=== PATIENT | male | born 1940 | race Asian ===

== ENCOUNTER 2024-06-05 16:33 | Emergency (ER) | payer MEDICARE, OTHER ==
[~2024-06-05] VITALS: Ht 162.6 cm; Wt 63.6 kg
[2024-06-05 17:07] VITALS: TEMP 97.9
[2024-06-05] MEDS ORDERED: SIMV-46 PO (17:14)
[2024-06-05] MEDS ORDERED: ASPI-1444 PO (17:14)
[2024-06-05] MEDS ORDERED: AMLO5TAB66 PO (17:14)
[2024-06-05] MEDS ORDERED: CHOL200059 PO (17:14)
[2024-06-05] MEDS ORDERED: TAMS0.4C94 PO (17:14)
[2024-06-05] MEDS ORDERED: MULT-1366 PO (17:16)
[2024-06-05] MEDS ORDERED: FERR-89 PO (17:16)
[2024-06-05 19:29] LABS: BASOPHILS % (AUTO) 0.1 % (0.0-2.0); EOSINOPHILS % (AUTO) 0.4 % (1.0-6.0); HEMATOCRIT 35.8 % (41-53); HEMOGLOBIN 11.1 g/dL (13.5-17.5); LYMPHOCYTES # (AUTO) 0.8 K/uL (1.0-4.8); LYMPHOCYTES % (AUTO) 6.7 % (22.0-44.0); MEAN CORPUSCULAR VOLUME 71 fL (80-100); MONOCYTES # (AUTO) 0.9 K/uL (0.1-1.0); MONOCYTES % (AUTO) 7.4 % (2.0-9.0); NEUTROPHILS # (AUTO) 10.3 K/uL (1.8-7.7); NEUTROPHILS % (AUTO) 85.4 % (40.0-70.0); PLATELET COUNT (AUTO) 171 K/uL (150-450); RED BLOOD CELL COUNT(AUTO) 5.04 MIL/uL (4.50-5.90); RED CELL DISTRIBUTION WIDTH 14.8 % (11.5-14.5)
[2024-06-05 19:33] LABS: ANION GAP 8 mmol/L (8-16); CALCIUM, TOTAL 8.4 mg/dL (8.8-10.5); CARBON DIOXIDE 27 mmol/L (22-29); CHLORIDE 108 mmol/L (98-107); CREATININE 1.09 mg/dL (0.60-1.30); GLOMERULAR FILTR. RATE CALC > 60 mL/min (>60); GLUCOSE,RANDOM 136 mg/dL (70-110); POTASSIUM 3.8 mmol/L (3.5-5.1); SODIUM SERUM 143 mmol/L (136-145); UREA NITROGEN, BLOOD 31 mg/dL (7-18)
[2024-06-05 19:39] LABS: LACTIC ACID 0.9 mmol/L (0.4-2.0)
[2024-06-05 19:41] LABS: TROPONIN I-HIGH SENSITIVITY 12 ng/L (<76)
[2024-06-05 20:05] LABS: APPEARANCE,URINE HAZY (CLEAR); BILIRUBIN,URINE NEGATIVE (NEGATIVE); COLOR,URINE YELLOW (YELLOW); GLUCOSE, URINE (UA) NEGATIVE (NEGATIVE); KETONES,URINE TRACE mg/dL (NEGATIVE); LEUKOCYTE ESTERASE ,URINE LARGE (NEGATIVE); NITRATE,URINE NEGATIVE (NEGATIVE); OCCULT BLOOD,URINE NEGATIVE (NEGATIVE); PH,URINE 5.5 (5.0-8.0); PROTEIN,URINE 30-70 mg/dL (NEGATIVE); SPECIFIC GRAVITIY, URINE 1.024 (1.003-1.030)
[2024-06-05 20:13] LABS: RBC MORPHOLOGY COMMENT ABNORMAL RBC MORPH
[2024-06-05 20:24] LABS: BACTERIA,URINE Moderate /HPF (None Seen); RBC,URINE 0-2 /HPF (0-2); SQUAMOUS EPITHELIAL CELL,UR Few /LPF (None Seen); WBC,URINE 26-50 /HPF (0-5)
[2024-06-05] MEDS ORDERED: CEFU250T87 PO (20:54)
[2024-06-05] MEDS: CEFUROXIME AXETIL 250 MG TABLET PO ONE (21:05)
[2024-06-05] MEDS: IBUPROFEN 400 MG TABLET PO ONE (21:05)
[2024-06-05] MEDS: LIDOCAINE 5% TRANSDERMAL PATCH TD ONE (21:06)
[2024-06-06 00:36] VITALS: BP 131/56; PULSE 79; RESP 19; O2SAT 97
== END 2024-06-06 00:36 | disposition home or self-care (01) ==
LOC: EMS 16:41
DX: S22.32XA Fracture of one rib, left side, initial encounter for closed fracture (principal); N39.0 Urinary tract infection, site not specified; R41.82 Altered mental status, unspecified; F03.90 Unspecified dementia, unspecified severity, without behavioral disturbance, psychotic disturbance, mood disturbance, and anxiety; E78.00 Pure hypercholesterolemia, unspecified; I10 Essential (primary) hypertension; N40.0 Benign prostatic hyperplasia without lower urinary tract symptoms; Z79.82 Long term (current) use of aspirin; Z79.899 Other long term (current) drug therapy; W06.XXXA Fall from bed, initial encounter; Y93.01 Activity, walking, marching and hiking; Y92.89 Other specified places as the place of occurrence of the external cause; Y99.8 Other external cause status
CPT/HCPCS: 70450; 71100; 73503; 80048; 81001; 83605; 84484; 85025; 87077; 87086; 87186; 99284

== ENCOUNTER 2024-10-06 16:34 | Inpatient (IN) | payer MEDICARE, OTHER ==
[~2024-10-06] VITALS: Ht 167.6 cm; Wt 53.8 kg
[~2024-10-06 16:34] MED LIST: AMLO5TAB66 PO; ASPI-1444 PO; ATOR40TA71 PO; CHOL200059 PO; FERR-89 PO; METO25 PO; MULT-1366 PO; QUET50TA24 PO; SERT-438 PO; TAMS0.4C94 PO
[2024-10-06] MEDS ORDERED: 0.9% SODIUM CHLORIDE 10 ML SYRINGE IVP PRN (16:45)
[2024-10-06] MEDS ORDERED: NITR0.4T50 SL (16:48)
[2024-10-06] MEDS: SODIUM CHLORIDE 0.9% 1,050 ML IV ONE (16:57)
[2024-10-06 17:09] LABS: COVID AG,FIA SOURCE NASAL SWAB
[2024-10-06 17:09] LABS: BASOPHILS % (AUTO) 0.1 % (0.0-2.0); EOSINOPHILS % (AUTO) 1.2 % (1.0-6.0); HEMATOCRIT 31.6 % (41-53); HEMOGLOBIN 9.9 g/dL (13.5-17.5); LYMPHOCYTES # (AUTO) 0.7 K/uL (1.0-4.8); LYMPHOCYTES % (AUTO) 7.2 % (22.0-44.0); MEAN CORPUSCULAR HEMOGLOBIN 22.3 pg (26.0-34.0); MEAN CORPUSCULAR HGB CONC 31.4 G/dL (31.0-37.0); MEAN CORPUSCULAR VOLUME 71 fL (80-100); MONOCYTES # (AUTO) 0.9 K/uL (0.1-1.0); MONOCYTES % (AUTO) 9.4 % (2.0-9.0); NEUTROPHILS # (AUTO) 8.2 K/uL (1.8-7.7); NEUTROPHILS % (AUTO) 82.1 % (40.0-70.0); PLATELET COUNT (AUTO) 229 K/uL (150-450); RED BLOOD CELL COUNT(AUTO) 4.45 MIL/uL (4.50-5.90); RED CELL DISTRIBUTION WIDTH 16.1 % (11.5-14.5)
[2024-10-06 17:19] LABS: RBC MORPHOLOGY COMMENT ABNORMAL RBC MORPH
[2024-10-06 17:21] LABS: B-TYPE NATRIURETIC PEPTIDE 45 pg/mL (0-100)
[2024-10-06 17:22] LABS: ANION GAP 9 mmol/L (8-16); CALCIUM, TOTAL 8.4 mg/dL (8.8-10.5); CARBON DIOXIDE 25 mmol/L (22-29); CHLORIDE 114 mmol/L (98-107); CREATININE 0.93 mg/dL (0.60-1.30); GLOMERULAR FILTR. RATE CALC > 60 mL/min (>60); GLUCOSE,RANDOM 123 mg/dL (70-110); POTASSIUM 3.7 mmol/L (3.5-5.1); SODIUM SERUM 148 mmol/L (136-145); UREA NITROGEN, BLOOD 31 mg/dL (7-18)
[2024-10-06 17:30] LABS: LACTIC ACID 0.7 mmol/L (0.4-2.0)
[2024-10-06 17:31] LABS: TROPONIN I-HIGH SENSITIVITY 12 ng/L (<76)
[2024-10-06 17:45] LABS: SARS-COV2 (COVID) ANTIGEN,FIA Negative (Negative)
[2024-10-06 17:46] LABS: INFLUENZA TYPE A NEGATIVE FOR TYPE A (NEGATIVE); INFLUENZA TYPE B NEGATIVE FOR TYPE B (NEGATIVE)
[2024-10-06] MEDS: CefTRIAXone 1 GM/DEXTROSE 50 ML IV ONE (18:27)
[2024-10-06] MEDS ORDERED: IPRATROPIUM BROMIDE 0.5 MG/2.5 ML NEB SOLUTION NEB PRN (19:45)
[2024-10-06] MEDS ORDERED: ALBUTEROL SULFATE 2.5 MG/0.5 ML NEB SOLUTION NEB PRN (19:45)
[2024-10-06] MEDS ORDERED: ONDANSETRON HCL 4 MG/2 ML VIAL IVP PRN (19:45)
[2024-10-06] MEDS ORDERED: ACETAMINOPHEN 325 MG TABLET PO PRN (19:45)
[2024-10-06] MEDS: PIPERACILLIN/TAZO 3.375 GM/D5W 50 ML IV ONE (20:29)
[2024-10-06 20:50] LABS: APPEARANCE,URINE CLEAR (CLEAR); BILIRUBIN,URINE NEGATIVE (NEGATIVE); COLOR,URINE YELLOW (YELLOW); GLUCOSE, URINE (UA) NEGATIVE (NEGATIVE); KETONES,URINE NEGATIVE (NEGATIVE); LEUKOCYTE ESTERASE ,URINE NEGATIVE (NEGATIVE); NITRATE,URINE NEGATIVE (NEGATIVE); OCCULT BLOOD,URINE NEGATIVE (NEGATIVE); PH,URINE 5.5 (5.0-8.0); PROTEIN,URINE TRACE mg/dL (NEGATIVE); SPECIFIC GRAVITIY, URINE 1.024 (1.003-1.030); UROBILINOGEN,URINE <=1.0 mg/dL (<=1.0)
[2024-10-06 23:15] VITALS: BP 136/66; PULSE 91; RESP 17; TEMP 98.2; O2SAT 98
[2024-10-06] MEDS: DOCUSATE SODIUM 100 MG CAPSULE PO SCH (23:45)
[2024-10-07] MEDS: HEPARIN SODIUM,PORCINE 5,000 UNITS/ML VIAL SQ SCH (01:12)
[2024-10-07] MEDS: PIPERACILLIN/TAZO 3.375 GM/D5W 50 ML IV SCH (03:08)
[2024-10-07 04:00] VITALS: BP 145/68; PULSE 100; RESP 16; TEMP 98.4; O2SAT 98
[2024-10-07 06:59] LABS: BASOPHILS % (AUTO) 0.3 % (0.0-2.0); EOSINOPHILS % (AUTO) 3.1 % (1.0-6.0); HEMATOCRIT 32.4 % (41-53); HEMOGLOBIN 10.2 g/dL (13.5-17.5); LYMPHOCYTES # (AUTO) 0.9 K/uL (1.0-4.8); LYMPHOCYTES % (AUTO) 8.3 % (22.0-44.0); MEAN CORPUSCULAR HEMOGLOBIN 22.4 pg (26.0-34.0); MEAN CORPUSCULAR HGB CONC 31.3 G/dL (31.0-37.0); MEAN CORPUSCULAR VOLUME 72 fL (80-100); MONOCYTES # (AUTO) 0.8 K/uL (0.1-1.0); MONOCYTES % (AUTO) 7.2 % (2.0-9.0); NEUTROPHILS % (AUTO) 81.1 % (40.0-70.0); PLATELET COUNT (AUTO) 254 K/uL (150-450); RED BLOOD CELL COUNT(AUTO) 4.54 MIL/uL (4.50-5.90); RED CELL DISTRIBUTION WIDTH 16.3 % (11.5-14.5); WHITE BLOOD COUNT (AUTO) 11.1 K/uL (4.5-11.0)
[2024-10-07 07:18] LABS: ANION GAP 7 mmol/L (8-16); CALCIUM, TOTAL 8.5 mg/dL (8.8-10.5); CARBON DIOXIDE 26 mmol/L (22-29); CHLORIDE 113 mmol/L (98-107); CREATININE 1.03 mg/dL (0.60-1.30); GLOMERULAR FILTR. RATE CALC > 60 mL/min (>60); GLUCOSE,RANDOM 132 mg/dL (70-110); POTASSIUM 3.6 mmol/L (3.5-5.1); SODIUM SERUM 146 mmol/L (136-145); UREA NITROGEN, BLOOD 30 mg/dL (7-18)
[2024-10-07 07:44] VITALS: BP 149/67; PULSE 84; RESP 18; TEMP 98.4; O2SAT 98
[2024-10-07 11:11] LABS: RBC MORPHOLOGY COMMENT ABNORMAL RBC MORPH
[2024-10-07] MEDS: MAGNESIUM HYDROXIDE SUSPENSION 30 ML UDCUP PO PRN (11:11)
[2024-10-07 11:40] VITALS: BP 124/67; PULSE 87; RESP 18; O2SAT 97
[2024-10-07 16:08] VITALS: BP 132/71; PULSE 89; RESP 18; TEMP 97.7; O2SAT 98
[2024-10-07 20:00] VITALS: BP 140/65; PULSE 92; RESP 18; TEMP 98; O2SAT 98
[2024-10-08] VITALS (7 sets, daily range): BP systolic 120–149; BP diastolic 53–69; PULSE 79–89; RESP 16–20; TEMP 97.8–98.6; O2SAT 97–99
[2024-10-08] MEDS: DEXTROSE 5%-WATER 1,000 ML IV ONE (14:23)
[2024-10-08] MEDS: ETHYL ALCOHOL 62% ANTISEPTIC NASAL SANITIZER 0.6 ML AMPUL NASAL SCH (20:27)
[2024-10-08] MEDS ORDERED: ETHYL ALCOHOL 62% ANTISEPTIC NASAL SANITIZER 0.6 ML AMPUL NASAL SCH (21:00)
[2024-10-09 04:00] VITALS: BP 114/57; PULSE 67; RESP 18; TEMP 97.5; O2SAT 98
[2024-10-09 06:21] LABS: BASOPHILS % (AUTO) 0.1 % (0.0-2.0); EOSINOPHILS % (AUTO) 8.7 % (1.0-6.0); HEMATOCRIT 30.5 % (41-53); HEMOGLOBIN 9.7 g/dL (13.5-17.5); LYMPHOCYTES # (AUTO) 1.1 K/uL (1.0-4.8); LYMPHOCYTES % (AUTO) 12.4 % (22.0-44.0); MEAN CORPUSCULAR HEMOGLOBIN 22.7 pg (26.0-34.0); MEAN CORPUSCULAR HGB CONC 31.8 G/dL (31.0-37.0); MEAN CORPUSCULAR VOLUME 72 fL (80-100); MONOCYTES # (AUTO) 0.6 K/uL (0.1-1.0); NEUTROPHILS # (AUTO) 6.2 K/uL (1.8-7.7); NEUTROPHILS % (AUTO) 71.8 % (40.0-70.0); PLATELET COUNT (AUTO) 216 K/uL (150-450); RED BLOOD CELL COUNT(AUTO) 4.27 MIL/uL (4.50-5.90); RED CELL DISTRIBUTION WIDTH 16.2 % (11.5-14.5); WHITE BLOOD COUNT (AUTO) 8.6 K/uL (4.5-11.0)
[2024-10-09 06:29] LABS: ANION GAP 6 mmol/L (8-16); CALCIUM, TOTAL 8.3 mg/dL (8.8-10.5); CARBON DIOXIDE 28 mmol/L (22-29); CHLORIDE 106 mmol/L (98-107); CREATININE 0.73 mg/dL (0.60-1.30); GLOMERULAR FILTR. RATE CALC > 60 mL/min (>60); GLUCOSE,RANDOM 102 mg/dL (70-110); POTASSIUM 3.6 mmol/L (3.5-5.1); SODIUM SERUM 140 mmol/L (136-145); UREA NITROGEN, BLOOD 19 mg/dL (7-18)
[2024-10-09 06:45] LABS: RBC MORPHOLOGY COMMENT ABNORMAL RBC MORPH
[2024-10-09 09:17] VITALS: BP 137/64; PULSE 87; RESP 17; TEMP 97.7; O2SAT 100
[2024-10-09 12:45] VITALS: BP 133/60; PULSE 93; RESP 17; TEMP 97.9; O2SAT 100
[2024-10-09] MEDS ORDERED: DOCU100C33 PO (16:49)
[2024-10-09] MEDS ORDERED: ETHY1MED2 NASAL (16:50)
[2024-10-09] MEDS ORDERED: LEVO-72 PO (16:52)
[2024-10-09 17:48] VITALS: BP 140/66; PULSE 88; RESP 18; TEMP 97.5; O2SAT 99
[2024-10-13 11:48] LABS: CANDIDA AURIS PCR,SURVEILLANCE Not Detected C(t) (Not Detectd)
== END 2024-10-09 17:47 | DRG 871 ==
LOC: EMS 16:34 → EDH 19:41 → 5N 22:54
PROVIDERS: ADMIT Internal Medicine; ATTEND Internal Medicine
DX: A41.9 Sepsis, unspecified organism (principal); E43 Unspecified severe protein-calorie malnutrition; G93.41 Metabolic encephalopathy; N39.0 Urinary tract infection, site not specified; E87.0 Hyperosmolality and hypernatremia; D84.9 Immunodeficiency, unspecified; Z68.1 Body mass index [BMI] 19.9 or less, adult; Z20.822 Contact with and (suspected) exposure to COVID-19; I10 Essential (primary) hypertension; E86.0 Dehydration; D64.9 Anemia, unspecified; E11.9 Type 2 diabetes mellitus without complications; F32.9 Major depressive disorder, single episode, unspecified; E78.00 Pure hypercholesterolemia, unspecified; N40.0 Benign prostatic hyperplasia without lower urinary tract symptoms; Z79.82 Long term (current) use of aspirin; Z79.899 Other long term (current) drug therapy
CPT/HCPCS: 70450; 71045; 80048; 81003; 83605; 83735; 83880; 84145; 84484; 85025; 85610; 87040; 87081; 87481; 87804; 93005; 99285; J0696; J1644; J2543; J7030; J7060; 36415-L1; 36415-TC